=== PATIENT | female | born 1975 | race Hispanic/Latino ===

== ENCOUNTER → 2018-12-21 12:50 | Outpatient (CLI) | payer OTHER, SELFPAY | PROVIDERS: Visit Provider Physician Assistant | DX: R30.0 Dysuria (principal) | CPT/HCPCS: 87077; 87086; 87186 ==

== ENCOUNTER 2022-08-18 22:18 | Emergency (ER) | payer SELFPAY ==
[2022-08-18 22:25] VITALS: BP 120/68; PULSE 80; RESP 19; TEMP 36.6; O2SAT 99; BMI 26.8
--- NOTE | 2022-08-18 22:38 | DI.RAD.S_ITS ---
PROCEDURE: XR CHEST 1V INDICATIONS: LEFT CHEST PAIN TECHNIQUE: One view of the chest was acquired. COMPARISON: None. FINDINGS: Surgical changes and devices: None. Lungs and pleura: Lungs are clear. No pleural effusions or pneumothorax. Mediastinum: Mediastinal contours appear normal. Heart size is normal. Bones and chest wall: No suspicious bony lesions. Overlying soft tissues appear unremarkable. IMPRESSION: No trauma found. Dictated by: Joshua Michaud M.D. on 08/18/2022 at 23:35 Approved by: Joshua Michaud M.D. on 08/18/2022 at 23:35
--- NOTE | 2022-08-18 22:38 | DI.CT.S_ITS ---
PROCEDURE: CT CHEST ABD PEL W CON INDICATIONS: Trauma TECHNIQUE: After the administration of intravenous contrast, 5 mm thick sections acquired from the lung apices to the symphysis. 5 mm coronal and sagittal reformats were performed, with additional 7 mm MIP reformats through the lungs. For radiation dose reduction, the following was used: automated exposure control, adjustment of mA and/or kV according to patient size. COMPARISON: None. FINDINGS: Image quality: Excellent. CHEST: Lungs and pleura: No acute airspace opacities. Note is made of a single pulmonary nodule posterior right upper lobe measuring 8 mm in diameter, seen on series 3, image 100. No emphysematous change is associated. No pleural effusions or pneumothorax. Central and peripheral airways appear patent and normal in caliber. Mediastinum: Heart size is normal. No pericardial effusion. No mediastinal or hilar adenopathy by size criteria. Thoracic aorta and central pulmonary arteries are normal in size. Esophagus is normal in caliber. No hiatal hernia. Chest wall: No axillary or supraclavicular adenopathy by size criteria. Thyroid gland appears normal. Bilateral breast implants without evidence of implant rupture after trauma. ABDOMEN: Solid organs: Liver is normal in size and enhancement. Gallbladder appears normal . Biliary system is non dilated. Pancreas enhances normally. Spleen is normal in size and enhancement. No adrenal nodules. Kidneys demonstrate normal size and enhancement, without hydronephrosis. Peritoneum and bowel: Bowel loops demonstrate normal wall thickness and caliber. No free fluid or air. Nodes and vessels: No retroperitoneal or mesenteric adenopathy by size criteria. Aorta and inferior vena cava are normal in size. Miscellaneous: No ventral hernias. PELVIS: Genitourinary: Bladder wall thickness is normal. Anteverted uterus, centrally positioned IUD within. Miscellaneous: No inguinal hernias or adenopathy. Bones: No suspicious bony lesions. No vertebral body compression fractures. IMPRESSION: No trauma found. Source of asymmetric left-sided chest pain is not identified. Incidental finding of 8 mm soft tissue nodule posterior right upper lobe. 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 Dictated by: Joshua Michaud M.D. on 08/18/2022 at 23:36 Approved by: Joshua Michaud M.D. on 08/18/2022 at 23:39
--- NOTE | 2022-08-18 22:38 | DI.CT.S_ITS ---
PROCEDURE: CT HEAD/BRAIN WO CON INDICATIONS: Trauma TECHNIQUE: Noncontrast 4.5 mm thick angled axial sections acquired from the foramen magnum to the vertex, with coronal and sagittal reformats. For radiation dose reduction, the following was used: automated exposure control, adjustment of mA and/or kV according to patient size. COMPARISON: None. FINDINGS: Image quality: Excellent. CSF spaces: Basal cisterns are patent. No extra-axial fluid collections. Ventricles are normal in size and shape. Brain: No midline shift. No intracranial masses or hemorrhage. [place]-white matter interface is normal. Skull and face: Calvarium and visualized facial bones are intact, without suspicious lesions. Sinuses: Visualized sinuses and mastoids are clear. IMPRESSION: No trauma found. Dictated by: Joshua Michaud M.D. on 08/18/2022 at 23:34 Approved by: Joshua Michaud M.D. on 08/18/2022 at 23:35
--- NOTE | 2022-08-18 22:38 | DI.CT.S_ITS ---
PROCEDURE: CT CERVICAL SPINE WO CON INDICATIONS: Trauma TECHNIQUE: Noncontrast 3 mm thick sections acquired from the skull base to the T4 level. Sagittal and coronal reformats were then constructed. For radiation dose reduction, the following was used: automated exposure control, adjustment of mA and/or kV according to patient size. COMPARISON: None. FINDINGS: Image quality: Excellent. Bones: No fractures or dislocations. Visualized superior ribs are intact. Soft tissues: Prevertebral soft tissues are normal in thickness. No paravertebral hematomas. No apical pneumothoraces. Note is again made of the 8 mm posterior subpleural nonspecific soft tissue nodule within the right upper lobe seen on series 4, image 70. IMPRESSION: No osseous trauma or evidence of ligamentous disruption identified. Again noted is an 8 mm soft tissue nodule posterior right upper lobe which requires follow-up in [address] scanning. Etiology of this structure is not established, and it would be helpful if outside comparison CT scanning that might include this area could be located for reference. If it is chronic no additional follow-up would be necessary. Dictated by: Joshua Michaud M.D. on 08/18/2022 at 23:43 Approved by: Joshua Michaud M.D. on 08/18/2022 at 23:45
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
--- NOTE | 2022-08-18 22:40 | PC.NURSE ---
2240: Tyshawn starks c-spine.
[2022-08-18 22:57] LABS: UR Morphine/Opiate cutoff 300 Negative (Negative); Ur Creatinine 20 (Normal); Ur Specific Gravity <1.005 (Normal); Urine Amphetamines Negative (Negative); Urine Barbiturates Negative (Negative); Urine Benzodiazepines Negative (Negative); Urine Cocaine Negative (Negative); Urine MDMA Negative (Negative); Urine Methadone Negative (Negative); Urine Methamphetamines Negative (Negative); Urine Oxycodone Negative (Negative); Urine Phencyclidine Negative (Negative); Urine Tetrahydrocannabinol Negative (Negative); Urine Tricyclic Antidepressant Negative (Negative); Urine pH 6 (Normal)
[2022-08-18 23:05] LABS: Add Manual Diff / Slide Review NO; Basophils Absolute Auto 0 /uL (0-100); Basophils Percent Auto 0.4 % (0-2); Eosinophils Absolute Auto 100 /uL (0-450); Eosinophils Percent Auto 1.8 % (2-4); Lymphocytes Absolute Auto 3600 /uL (1100-4500); Lymphocytes Percent Auto 47.7 % (25-40); Mean Corpuscular HGB Conc 34.1 % (30-36); Mean Corpuscular Volume 99.8 fL (80-100); Monocytes Absolute Auto 500 /uL (0-900); Monocytes Percent Auto 7.1 % (3-14); Neutrophils Absolute Auto 3200 /uL (1500-7000); Platelet Count 235 X10^3/uL (150-400); Red Blood Cell Count 4.11 X10^6/uL (4.0-5.2); Red Cell Distribution Width 13.1 % (11.6-14.8); White Blood Cell Count 7.5 X10^3/uL (4.5-11.0)
[2022-08-18 23:06] LABS: INR 0.9 (0.9-1.3); Prothrombin Time 10.8 SECONDS (10.1-12.7)
[2022-08-18 23:08] LABS: PTT Partial Thromboplastin Tim 31 SECONDS (26-36)
[2022-08-18 23:11] LABS: Alanine Aminotransferase 49 IU/L (<35); Albumin 4.4 g/dL (3.5-5.0); Albumin Globulin Ratio 1.4 (1.0-2.8); Alkaline Phosphatase 74 U/L (38-126); Aspartate Aminotransferase 114 IU/L (14-36); BUN Creatinine Ratio 14.3 (6-22); Bilirubin Total 0.2 mg/dL (0.2-1.3); Blood Urea Nitrogen 9 mg/dL (7-17); Calcium 8.6 mg/dL (8.4-10.2); Carbon Dioxide 25 mmol/L (22-32); Chloride 99 mmol/L (98-107); Estimated Glomerular Filt Rate > 60 mL/min (>60); Globulin 3.2 g/dL (1.7-4.1); Glucose 88 mg/dL (70-100); HEMOLYSIS < 15 (0-50); Lipase 51 U/L (23-300); Potassium 3.7 mmol/L (3.4-5.1); Sodium 137 mmol/L (137-145); Total Protein 7.6 g/dL (6.3-8.2)
[2022-08-18 23:19] LABS: Ethanol (ETOH) 347 mg/dL
[2022-08-18 23:20] VITALS: PULSE 73; O2SAT 98
[2022-08-18 23:30] VITALS: PULSE 72
[2022-08-18] MEDS: ONDANSETRON 4 MG/2 ML INJ IV (23:30)
[2022-08-18] MEDS: fentaNYL 100 MCG/2 ML INJ 25 MCG IV (23:30)
[2022-08-18 23:49] LABS: Pregnancy Test Serum,Qual Negative (Negative)
[2022-08-19] VITALS: PULSE 68; RESP 20; O2SAT 98
[2022-08-19] MEDS: LORazepam 2 MG/ML INJ 0.5 MG IV (00:04)
[2022-08-19 00:10] VITALS: BP 100/56; PULSE 74; O2SAT 97
[2022-08-19 00:30] VITALS: PULSE 85
[2022-08-19 00:31] LABS: Bacteria Urine None Seen; Culture Indicated Urine Cult Not Indicated; RBC Urine None Seen (0-5/HPF); Squamous Epithelial Cell Urine 1-5 /HPF (0-5/HPF); WBC Urine None Seen (0-5/HPF)
--- NOTE | 2022-08-19 01:18 | PC.NURSE ---
Pt is becoming anxious and tearful. New verbal order for 1mg of Ativan IV given by provider Tyshawn.
[2022-08-19] MEDS: LORazepam 2 MG/ML INJ 1 MG IV (01:25)
[2022-08-19 01:27] VITALS: PULSE 78; O2SAT 97
[2022-08-19] MEDS: KETOROLAC 30 MG/ML VIAL 15 MG IV (05:46)
[2022-08-19] MEDS: ONDANSETRON 4 MG/2 ML INJ IV (05:46)
[2022-08-19 07:16] VITALS: BP 105/75; PULSE 84; RESP 18; TEMP 36.6; O2SAT 98
== END 2022-08-19 07:17 | disposition home or self-care (01) ==
PROVIDERS: Emergency Provider Emergency Medicine
DX: R07.89 Other chest pain (principal); S20.212A Contusion of left front wall of thorax, initial encounter; R10.12 Left upper quadrant pain; F10.129 Alcohol abuse with intoxication, unspecified; Y90.8 Blood alcohol level of 240 mg/100 ml or more; R91.1 Solitary pulmonary nodule; V49.9XXA Car occupant (driver) (passenger) injured in unspecified traffic accident, initial encounter
CPT/HCPCS: 70450; 71045; 71260; 72125; 74177; 80053; 80305; 80320; 81003; 81015; 81025; 82962; 83605; 83690; 84703; 85025; 85610; 85730; 86850; 86900; 86901; 93005; 96374; 96375; 96376; 99284; J1885; J2060; J2405; J3010; Q9967